=== PATIENT | female | born 1970 | race Caucasian/White ===

== ENCOUNTER → 2017-03-22 | Outpatient (CLI) | payer BC | LOC: RAD 08:54 | PROVIDERS: ATTEND Internal Medicine | DX: Z12.31 Encounter for screening mammogram for malignant neoplasm of breast (principal) | CPT/HCPCS: 77067 ==

== ENCOUNTER → 2018-08-01 | Outpatient (CLI) | payer BC ==
--- NOTE | 2018-08-01 14:05 | Diagnostic Imaging Report ---
INDICATION: Routine screening. COMPARISON: 03/22/2017 and 01/21/2016. TECHNIQUE: 2D and 3D bilateral screening mammography was performed with CAD. FINDINGS: Bilateral breast implants are again noted. The implant contours appear stable. Both breasts are heterogeneously dense, limiting the sensitivity of mammography. The parenchymal pattern is stable. No dominant mass or malignant appearing microcalcifications are seen. The axillae are unremarkable. IMPRESSION: No mammographic features suspicious for malignancy are identified. ACR BI-RADS Category 2: Benign findings. Result letter will be mailed to the patient. Note: At least 10% of breast cancer is not imaged by mammography. Dictated by: Dictated on workstation # [id number]
== END ==
LOC: RAD 10:34
PROVIDERS: ATTEND Internal Medicine
DX: Z12.31 Encounter for screening mammogram for malignant neoplasm of breast (principal)
CPT/HCPCS: 77067

== ENCOUNTER 2019-08-20 05:36 | Outpatient (CLI) | payer BC ==
[~2019-08-20] VITALS: Ht 157 cm; Wt 72.7 kg
[2019-08-20] MEDS ORDERED: BENA1TAB56 PO (13:58)
[2019-08-20] MEDS ORDERED: VENL75CA PO (13:58)
== END 2019-08-20 14:44 | disposition home or self-care (01) ==
LOC: PREOP 05:36
PROVIDERS: ATTEND Internal Medicine
DX: Z01.818 Encounter for other preprocedural examination (principal)

== ENCOUNTER 2019-08-24 06:49 | Day surgery (SDC) | payer BC ==
--- NOTE | 2019-08-07 09:44 | HISTORY AND PHYSICAL ---
DATE OF SERVICE: COLONOSCOPY H AND P HISTORY OF PRESENT ILLNESS: The patient is a 48-year-old white female seen for yearly wellness examination. She is deemed to be of average risk for colon cancer. She is not aware of any family history for colon cancer or colon polyps. She reports no bright red blood per rectum or change in bowel habits or abdominal pain. She was seen for yearly wellness evaluation. She reports that she has been feeling well. She has had difficulty with weight loss and her weight was up 4.2 pounds. She has been feeling well otherwise and voices no complaints. FAMILY HISTORY: Updated. Mother is living in her early 80s with a history of hypertension with no known history of coronary artery disease, although she did have a TIA. She has one sister who is 49, alive and well with no health problems. She knew very little about her father. Does not know the age of his or the cause of his . PHYSICAL EXAMINATION: GENERAL: Reveals a well-appearing white female in no acute distress. BMI 27. VITAL SIGNS: Weight 160, blood pressure 120/70. HEENT: Oral cavity reveals a Mallampati 2 pharyngeal configuration. No exudate or erythema are noted. Ear canals clear with normal TMs. CHEST: Clear to auscultation. CARDIOVASCULAR: Reveals a regular rate and rhythm without murmur, S3 or S4 with a blood pressure of 120/70. ABDOMEN: Soft, supple without mass, organomegaly or tenderness. EXTREMITIES: Reveal no cyanosis, clubbing or edema. SKIN: Evaluation reveals no suspicious nevi. ASSESSMENT AND PLAN: 1. Unremarkable wellness examination other than a BMI OF 27. Today, we did discuss intermittent fasting versus time restrictive feeding, which she will try 16/8 hour time restrictive feeding schedule. 2. Hypertension, under good control. 3. The patient was set up for screening colonoscopy, deemed to be of average risk on 08/25/2019. Prep instructions with the Suprep kit were given and questions were answered. I will have the patient follow up in 6 months. Job ID: [id number] DocumentID: [id number] Dictated Date: 07/30/2019 17:34:38 Slag Skimmer Date: 07/30/2019 17:54:09 Dictated By: HERMES GALVEZ MD MTDD
[2019-08-24] VITALS (19 sets, daily range): BP systolic 137–176; BP diastolic 75–98
[~2019-08-24 06:49] MED LIST: BENA1TAB56 PO; VENL75CA PO
[2019-08-24] MEDS ORDERED: D5 LR IV SOLUTION 1,000 ML IV ONE (07:02)
[2019-08-24] MEDS ORDERED: fentaNYL INJECTION 100 MCG/2 ML AMP ONE (07:23)
[2019-08-24] MEDS ORDERED: LIDOCAINE JELLY 2% 6 ML SYRINGE ONE (07:23)
[2019-08-24] MEDS ORDERED: MIDAZOLAM 5 MG/5 ML (VERSED) VIAL ONE (07:23)
[2019-08-24] MEDS ORDERED: D5 LR IV SOLUTION 1,000 ML IV STA (08:09)
[2019-08-24] MEDS ORDERED: fentaNYL INJECTION 100 MCG/2 ML AMP IVP ONE (08:15)
[2019-08-24] MEDS ORDERED: LIDOCAINE JELLY 2% 6 ML SYRINGE MM PRN (08:15)
[2019-08-24] MEDS ORDERED: MIDAZOLAM 5 MG/5 ML (VERSED) VIAL IV PRN (08:15)
--- NOTE | 2019-08-24 09:04 | Pre-Op Note & Conscious Sedat ---
Pre-Operative Progress Note H&P Reviewed The H&P was reviewed, patient examined and no changes noted. Date H&P Reviewed: Aug 24, 2019 Time H&P Reviewed: 07:40 Conscious Sedation Pre-Proced ASA Score 2 For ASA 3 and 4: Consider anesthesia and medical clearance. Also, for patients with a history of failed moderate sedation consider anesthesia. Airway Lungs Heart ASA score ASA 1: a normal healthy patient ASA 2: a patient with a mild systemic disease (mid diabetes, controlled hypertension, obesity ASA 3: a patient with a severe systemic disease that limits activity (angina, COPD, prior Myocardial infarction) ASA 4: a patient with an incapacitating disease that is a constant threat to life (CHF, renal failure) ASA 5: a moribund patient not expected to survive 24 hrs. (ruptured aneurysm) ASA 6: a declared brain- patient whose organs are being harvested. For emergent operations, add the letter E after the classification Mallampati Classification Grade 2 Sedation Plan Analgesia, Amnesia, Plan communicated to team members, Discussed options with patient/fam, Discussed risks with patient/fam The patient is an appropriate candidate to undergo the planned procedure, sedation, and anesthesia. The patient immediately re-assessed prior to indication. HERMES GALVEZ MD Aug 24, 2019 09:04
--- NOTE | 2019-08-24 14:02 | OPERATIVE REPORT ---
DATE OF SERVICE: COLONOSCOPY SUMMARY DESCRIPTION OF PROCEDURE: The patient was placed in the left lateral decubitus position. Prior to undergoing colonoscopy, digital rectal evaluation was performed. Anal sphincter tone was normal and the perianal reflexes intact. The colonoscope was inserted. No abnormalities were noted on digital inspection of the anal canal or distal rectal vault. The colonoscope was then inserted into the rectum and under direct visualization advanced to cecum. The cecum was identified by identification of the ileocecal valve and cecal strap. Photographic documentation was obtained. Careful inspection was made as the colonoscope withdrawn. The patient tolerated the procedure well. The quality of the prep was good. FINDINGS: There was no evidence for internal or external hemorrhoids and the rectum was unremarkable. Present in the distal sigmoid colon was a 5 mm sessile adenomatous polyp. It was biopsied, ablated and submitted for histopathology. There was no subsequent blood loss. The remainder of the sigmoid colon was unremarkable. No evidence for diverticular disease was identified. The descending colon, splenic flexure were unremarkable. Present in the mid transverse colon was a diminutive hyperplastic appearing polyp measuring about 2 mm in size. It was photographed, biopsied and ablated with no subsequent blood loss. Remainder of the transverse colon, hepatic flexure, ascending colon and cecum were unremarkable. ASSESSMENT: Two polyps were removed today. The largest in the distal sigmoid colon measuring about 5 mm in size with adenomatous features. As long as there are no surprises on histopathology report, we will likely be advocating repeat surveillance colonoscopy in 5 years. Job ID: [id number] DocumentID: [id number] Dictated Date: 08/24/2019 09:38:28 Hand Buffer Date: 08/24/2019 14:02:10 Dictated By: HERMES GALVEZ MD
== END 2019-08-24 09:29 | disposition home or self-care (01) ==
LOC: ENDO 06:49
PROVIDERS: ATTEND Internal Medicine
DX: Z12.11 Encounter for screening for malignant neoplasm of colon (principal); D12.5 Benign neoplasm of sigmoid colon; K63.5 Polyp of colon; I10 Essential (primary) hypertension
CPT/HCPCS: 84703

== ENCOUNTER → 2020-02-08 | Outpatient (CLI) | payer BC ==
--- NOTE | 2020-02-08 22:55 | Diagnostic Imaging Report ---
Digital mammogram bilateral screening This study was compared to the prior exam of 08/01/2018, 03/22/2017 and 01/21/2016. At this time, there are no current complaints. The current study was also evaluated with a Computer Aided Detection (CAD) system. There are bilateral breast implants in place. The implants appear intact and seems similar to the prior exam. There is no sign of an extracapsular rupture of either implant. The fibroglandular tissue overlying the implants is heterogeneously dense. This does limit the sensitivity of this exam. Overall, there does not appear to have been any significant change. A few scattered microcalcifications are again seen in the medial aspect of the left breast. There is no primary or secondary sign of malignancy noted. IMPRESSION: 1. There is no evidence of malignancy. 2. The implants appear stable. There is no sign of an extracapsular rupture of either implant. ACR BI-RADS Category 1: Negative Result letter will be mailed to the patient. Note: At least 10% of breast cancer is not imaged by mammography. Dictated by: Dictated on workstation # [id number]
== END ==
LOC: RAD 14:32
PROVIDERS: ATTEND Internal Medicine
DX: Z12.31 Encounter for screening mammogram for malignant neoplasm of breast (principal); Z98.82 Breast implant status
CPT/HCPCS: 77063; 77067

== ENCOUNTER → 2021-04-22 | Outpatient (CLI) | payer BC | LOC: LABNPT 06:33 | PROVIDERS: ATTEND Internal Medicine | DX: Z20.822 Contact with and (suspected) exposure to COVID-19 (principal) | CPT/HCPCS: 87636 ==

== ENCOUNTER → 2022-04-09 | Outpatient (CLI) | payer BC ==
--- NOTE | 2022-04-09 12:36 | Diagnostic Imaging Report ---
Indication: Routine screening. Comparison is made with prior mammogram 02/08/2020 and 08/01/2018. 2-D and 3-D bilateral screening mammography was performed with CAD. CAD is utilized. The current study was also evaluated with a Computer Aided Detection (CAD) system. Both breasts are heterogeneously dense, limiting the sensitivity of mammography. Patient's bilateral breast implants have been removed since prior mammogram. No mass or malignant-appearing microcalcifications are seen. Axillae are unremarkable. IMPRESSION: BI-RADS Category 1 No mammographic features suspicious for malignancy are identified. ACR BI-RADS Category 1: Negative. Result letter will be mailed to the patient. Note: At least 10% of breast cancer is not imaged by mammography. Dictated by: Dictated on workstation # [id number]
== END ==
LOC: RAD 08:34
PROVIDERS: ATTEND Internal Medicine
DX: Z12.31 Encounter for screening mammogram for malignant neoplasm of breast (principal)
CPT/HCPCS: 77063; 77067